=== PATIENT | male | born 1940 | race Caucasian/White ===

== ENCOUNTER 2017-05-02 09:55 | Inpatient (IN) | payer MEDICARE, MEDICAID ==
[~2017-05-02] VITALS: Ht 177.8 cm; Wt 93.9 kg
[~2017-05-02 09:55] MED LIST: ALL DAY ALLG10 MG PO; ASPIRIN; ASPIRIN81 MG PO; BENADRYL25 MG PO; C 500 PO; CETIRIZINE10 MG PO; DOXYCYCL HYC100 MG PO; FLONASE NASAL50 MCG; FLUTICASONE50 MCG NAB; LOVASTATIN20 M1 PO; NITROGLYCER0.4 MG PO; OMEGA-3 FISH1000 MG PO; PRAVASTATIN SOD40 MG PO; TOBRADEX 2.5 ML OU; TOBRAMYCIN0.3 % OS; TOBRAMYCIN0.3 % OU
[2017-05-02] MEDS ORDERED: LIPITOR40 M1 PO (11:24)
[2017-05-02] MEDS ORDERED: ALLERGY RELF10 M1 PO (11:25)
--- NOTE | 2017-05-05 17:25 | NUR ---
FROM OR VIA STRETCHER ACCOMPANIED BY RAISA ANNE. TRANSFERRED TO BED WITH MAX ASSIST. RESPS EVEN AND UNLABORED ON ROOM AIR. DRESSING TO RIGHT KNEE SECURED WITH JOE WRAP, CDI. RIGHT LEG ELEVATED ON PILLOWS, ICE PACK TO RIGHT KNEE. JACKSON PATENT, DRAINING CLEAR YELLOW URINE TO GRAVITY, STRAP TO UPPER LEFT LEG. DENIES PAIN OR DISCOMFORT. SCD TO LEFT LOWER EXTREMITY. ORIENTED TO ROOM AND CALL SYSTEM. BED IN LOWEST POSITION WITH WHEELS LOCKED. ENCOURAGED PT TO CALL FOR ANY NEEDS. CALL LIGHT WITHIN REACH.
[2017-05-05 17:30] VITALS: BP 121/57
[2017-05-05 17:45] VITALS: BP 131/55
[2017-05-05 18:08] VITALS: BP 116/61
--- NOTE | 2017-05-05 18:24 | NUR ---
TOLERATING CLEAR LIQUID DIET WITHOUT C/O NAUSEA OR ABD PAIN.
[2017-05-05 18:45] VITALS: BP 110/31
[2017-05-05 19:15] VITALS: BP 120/58
--- NOTE | 2017-05-05 20:00 | NUR ---
PATIENT RESTING IN BED AT THIS TIME-AWAKE ALERT AND ORIENTEDX3. PATIENT C/O POST-OP PAIN-MEDICATED WITH MORPHINE 2MG IVP ORDERED FOR POST-OP PAIN. PATIENT WITH DRESSING TO RIGHT KNEE SECURED WITH JOE WRAP. ICE PACK TO RIGHT KNEE ORDERED. PATIENT WITH JACKSON CATH PATENT AND DRAINING CLEAR YELLOW URINE. IV SITE TO LEFT FOREARM WITH IVF LR PATENT AND INFUSING AT 100CC/HR. SITE APPEARS HEALTHY AT THIS TIME. ENCOURAGED USE OF IS Q1H WHILE AWAKE, ENCOURAGED CDB EXERCISES. SCD TO LEFT LE. CMS TO RIGHT FOOT WNL-COLOR, SENSATION AND MOVEMENT WNL. DENIES ANY NUMBNESS AT THIS TIME. SAFETY PRECAUTIONS REINFORCED. CALL LIGHT IN REACH. WILL CONT TO MONITOR.
[2017-05-05 20:15] VITALS: BP 111/71
--- NOTE | 2017-05-05 23:00 | NUR ---
PATIENT RESTING IN BED-VOMITTING ORANGE COLORED FLUID-PATIENT JUST HAD ORANGE GATORADE. MEDICATED WITH ZOFRAN 4MG IVP ORDERED FOR VOMITTING. COOL CLOTH PROVIDED FOR FOREHEAD. CALL LIGHT IN REACH.
--- NOTE | 2017-05-06 01:00 | NUR ---
PATIENT APPEARS SLEEPING AT THIS TIME WITH EYES CLOSED. MOISES LIGHT IN REACH. WILL CONT TO MONITOR.
--- NOTE | 2017-05-06 02:34 | NUR ---
PATIENT IS AWAKE ALERT RESTING IN BED. JACKSON CATH PATENT AND DRAINING CLEAR YELLOW URINE. IVF LR PATENT AND INFUSING VIA LEFT FOREARM AT 100CC/HR. PATIENT WITH NO N/V AT THIS TIME. PATIENT DECLINES PAIN MEDS AT THIS TIME-STATES THAT HE IS AFRAID TO TRY ANY MEDS AT THIS TIME. RIGHT KNEE DRESSING INTACT AND SECURED WITH JOE WRAP. GIGI IS GOOD. CMS TO RIGHT FOOT IS WNL. GOOD COLOR SENSATION AND MOVEMENT. SCD TO LEFT INTACT. ENCOURAGED CDB EXERCISES AND USE OS IS Q1H WHILE AWAKE. SAFETY PRECAUTIONS REINFORCED.CALL LIGHT IN REACH. WILL CONT TO MONITOR.
[2017-05-06 04:55] VITALS: BP 124/67
--- NOTE | 2017-05-06 06:00 | NUR ---
PATIENT RESTING IN BED AT THIS TIME-IVF REMAIN AT 100CC/HR ORDERED. PATIENT DECLINES ANY PAIN MEDS AT THIS TIME-STATES THAT HE WILL TRY AFTER HE HAS SOME BREAKFAST. CALL LIGHT IN REACH. WILL CONT TO MONITOR.
--- NOTE | 2017-05-06 07:00 | NUR ---
RECEIVED BEDSIDE REPORT FROM CESAR ANNE. RESTING IN HIGH FOWLERS WATCHING TV. RESPS EVEN AND UNLABORED ON ROOM AIR. RIGHT LEG ELEVATED ON PILLOWS, DRESSING TO RIGHT LEG SECURED WITH JOE WRAP, CDI. SCD TO LEFT LOWER EXTREMITY. C/O RIGHT KNEE PAIN AND NAUSEA, WILL MEDICATE PER MAR. PLAN OF CARE DISCUSSED. SAFETY PRECAUTIONS REINFORCED. BED IN LOWEST POSITION WITH WHEELS LOCKED. CALL LIGHT WITHIN REACH. ENCOURAGED PT TO CALL FOR ANY NEEDS.
[2017-05-06 07:11] LABS: HEMATOCRIT 34.9 % (39.0-50.0); HEMOGLOBIN 11.4 g/dl (14.0-18.0)
[2017-05-06 07:30] VITALS: BP 114/46
--- NOTE | 2017-05-06 07:55 | NUR ---
RESTING IN BED WITH RIGHT KNEE ELEVATED ON PILLOWS. RESPS EVEN AND UNLABORED ON ROOM AIR. DRESSING TO RIGHT KNEE SECURED WITH JOE WRAP, CDI. #20 LFA INFUSING WITHOUT DIFFICULTY, SITE APPEARS HEALTHY. JACKSON PATENT, DRAINING CLEAR YELLOW URINE TO GRAVITY, STRAP TO UPPER LEFT LEG, SCD TO LEFT LOWER EXTREMITY. MEDICATED WITH PERCOCET X2 PO FOR C/O 5/10 RIGHT KNEE PAIN WITH ZOFRAN 4MG IVP FOR C/O NAUSEA. CALL LIGHT WITHIN REACH. WILL CONTINUE TO MONITOR.
--- NOTE | 2017-05-06 08:40 | NUR ---
PHYSICAL THERAPY IN WITH PT.
[2017-05-06 11:00] VITALS: BP 103/46
--- NOTE | 2017-05-06 11:00 | NUR ---
JACKSON CATH REMOVED WITH 500CC YELLOW URINE, 10CC IN BALLOON. TOLERATED WELL. INSTRUCTED PT TO CALL WITH URGE TO VOID. CALL LIGHT WITHIN REACH. WILL CONTINUE TO MONITOR.
--- NOTE | 2017-05-06 12:00 | NUR ---
DR CASTELLANO IN WITH PT, NEW ORDERS RECEIVED.
[2017-05-06 12:15] LABS: HEMATOCRIT 32.9 % (39.0-50.0); HEMOGLOBIN 10.8 g/dl (14.0-18.0); IMMATURE GRANULOCYTES 0.4 % (0.0-1.0); MEAN CELL VOLUME 91.1 fL CALC (80.0-100.0); MEAN CORPUSCULAR HGB 29.9 pG CALC (26.0-32.0); MEAN CORPUSCULAR HGB CONC 32.8 g/L CALC (32.0-36.0); NEUT# 8.66 thou/uL (1.82-7.42); RED BLOOD COUNT 3.61 mill/uL (4.70-6.10); RED CELL DISTRI WIDTH 13.4 % (11.5-15.5)
[2017-05-06 12:33] LABS: ALKALINE PHOSPHATASE 52 u/l (38-126); ANION GAP 14 (6-22 (CALC)); BILIRUBIN, TOTAL 0.8 mg/dL (0.0-1.4); BUN 11 mg/dL (8-23); BUN/CREATININE RATIO 13 (12-20 (CALC)); CARBON DIOXIDE 28 mmol/l (22-30); CHLORIDE 100 mmol/l (95-108); CREATININE 0.8 mg/dL (0.7-1.3); GFR > 60 ML/MIN (>=60 (CALC)); GFR FOR AFR.AMER. > 60 ML/MIN (>=60 (CALC)); SGOT/AST 25 u/l (19-48); SGPT/ALT 23 u/l (11-66); SODIUM 138 mmol/l (137-146)
[2017-05-06 12:35] LABS: ALBUMIN 3.4 g/dL (3.2-5.0); TOTAL PROTEIN 5.9 g/dL (6.3-8.2)
--- NOTE | 2017-05-06 13:00 | NUR ---
MEDICATED WITH ZOFRAN 4MG IVP FOR NAUSEA WITH 300CC EMESIS.
[2017-05-06 16:00] VITALS: BP 126/61
--- NOTE | 2017-05-06 17:20 | NUR ---
MEDICATED WITH PERCOCET PO FOR C/O 4/10 RIGHT KNEE PAIN WITH ZOFRAN 4MG IVP FOR C/O NAUSEA. VOIDED 125 CC URINE WITHOUT DIFFICULTY. CALL LIGHT WITHIN REACH. WILL CONTINUE TO MONITOR.
--- NOTE | 2017-05-06 17:27 | NUR ---
pm: Patient seen for exercises. He was in bed, stated he had been nauseaus. States he felt a little better and could ex, but did not feel up to walking. Ex done in supine for rom and strengthening of LE's. Beginning quad set seen. Full knee extension in supine. Patient coop, appeared to tolerate treatment well. Left him comfortable in bed with call light next to him.
--- NOTE | 2017-05-06 20:00 | NUR ---
PATIENT RESTING IN BED WITH HOB ELEVATED. AWAKE ALERT AND ORIENTEDX3. DRESSING TO RIGHT INTACT AND SECURED WITH JOE WRAP. PATIENT STILL WITH TEMP=MEDICATED WITH TYLENOL ORDERED. IVF LR PATENT AND INFUSING AT 100CC/HR. PATIENT IS VOIDING DARCIE URINE. SAFETY PRECAUTIONS REINFORCED.CALL LIGHT IN REACH.
[2017-05-06 20:45] VITALS: BP 115/58
[2017-05-06 23:30] VITALS: BP 123/65
--- NOTE | 2017-05-07 00:08 | NUR ---
PATIENT APPEARS SLEEPING AT THIS TIME WITH EYES CLOSED AND HOB ELEVATED. IVF PATENT AND INFUSING VIA LEFT FOREARM SITE. SITE APPEARS HEALTHY AT THIS TIME. CALL LIGHT IN REACH. WILL CONT TO MONITOR.
--- NOTE | 2017-05-07 04:12 | NUR ---
PATIENT APPEARS SLEEPING WITH EYES CLOSED AND HOB ELEVATED. CALL LIGHT IN REACH. IVF LR PATENT AND INFUSING AT 100CC/HR VIA LEFT FOREARM SITE. WILL CONT TO MONITOR.
[2017-05-07 05:20] VITALS: BP 113/69
[2017-05-07 05:30] LABS: HEMOGLOBIN 10.7 g/dl (14.0-18.0); IMMATURE GRANULOCYTES 0.5 % (0.0-1.0); MEAN CELL VOLUME 92.8 fL CALC (80.0-100.0); MEAN CORPUSCULAR HGB CONC 33.4 g/L CALC (32.0-36.0); NEUT# 10.97 thou/uL (1.82-7.42); RED BLOOD COUNT 3.45 mill/uL (4.70-6.10); RED CELL DISTRI WIDTH 13.7 % (11.5-15.5)
[2017-05-07 05:46] LABS: ANION GAP 17 (6-22 (CALC)); BUN 9 mg/dL (8-23); BUN/CREATININE RATIO 12 (12-20 (CALC)); CARBON DIOXIDE 26 mmol/l (22-30); CHLORIDE 99 mmol/l (95-108); CREATININE 0.8 mg/dL (0.7-1.3); GFR > 60 ML/MIN (>=60 (CALC)); GFR FOR AFR.AMER. > 60 ML/MIN (>=60 (CALC)); MAGNESIUM 1.5 mg/dL (1.6-2.3); POTASSIUM 3.8 mmol/l (3.5-5.1); SODIUM 139 mmol/l (137-146)
--- NOTE | 2017-05-07 05:50 | NUR ---
TEMP 100.1 AT THIS TIME. DENIOES ANY NEED FOR PAIN MEDS AT THIS TIME. DRESSING TO RIGHT KNEE INTACT. INCREASED SWELLING NOTED TO RIGHT LEG AND THIGH. SAFETY PRECAUTIONS REINFORCED. CALL LIGHT IN REACH. WILL CONT TO MONITOR.
--- NOTE | 2017-05-07 07:00 | NUR ---
RECEIVED BEDSIDE RPORT FROM CESAR ANNE. RESTING IN SEMI FOWLERS WITH EYES CLOSED, AWAKENS EASILY. RESPS EVEN AND UNLABORED ON ROOM AIR. #20 LFA INFUSING WITHOUT DIFFICULTY, SITE APPEARS HEALTHY. RIGHT LEG ELEVATED ON PILLOWS, DRESSING TO RIGHT KNEE SECURED WITH JOE WRAP, CDI. DENIES PAIN OR DISCOMFORT. PLAN OF CARE DISCUSSED. SAFETY PRECAUTIONS REINFORCED. BED IN LOWEST POSITION WITH WHEELS LOCKED. CALLL LIGHT WITHIN REACH. WILL CONTINUE TO MONITOR.
[2017-05-07 07:59] VITALS: BP 135/54
--- NOTE | 2017-05-07 08:55 | NUR ---
RESTING IN SEMI FOWLERS. RESPS EVEN AND UNLABORED ON ROOM AIR. DRESSING TO RIGHT KNEE SECURED WITH JOE WRAP, CDI. MEDCIATED WITH PERCOCET PO FOR C/O 2/10 RIGHT KNEE PAIN. TOLERATED FULL LIQUID DIET WITHOUT C/O NAUSEA OR ABD PAIN. CALL LIGHT WITHIN REACH. WILL CONTINUE TO MONITOR.
[2017-05-07 11:00] VITALS: BP 131/56
--- NOTE | 2017-05-07 11:46 | NUR ---
RESTING IN SEMI FOWLERS. DRESSING TO RIGHT KNEE REMOVED, NO DRAINAGE OR REDNESS NOTED. DERMABOND LEFT IN PLACE. TOLERATED WITHOUT DIFFICULTY. CALL LIGHT WITHIN REACH. WILL CONTINUE TO MONITOR.
--- NOTE | 2017-05-07 12:30 | NUR ---
PHYSICAL THERAPY IN WITH PT.
--- NOTE | 2017-05-07 12:40 | NUR ---
MEDICATED WITH ZOFRAN FOR C/O NAUSEA.
--- NOTE | 2017-05-07 13:46 | NUR ---
AMBULATING IN HALLWAY WITH PHYSICAL THERAPY.
--- NOTE | 2017-05-07 14:04 | NUR ---
PATIENT SEEN THIS PM FOR GAIT TRAINING. PATIENT FOUND SITTING UP IN BED. GAIT BELT APPLIED PRIOR TO ACTIVITY. THERAPIST ASSISTED PATIENT IN ABDUCTING AND LOWERING R LEG OFF OF BED. PATIENT TRANSFERED TO EDGE OF BED INDEPENDENTLY. PATIENT PERFORMED SIT TO STAND WITH CGA X1 AND AMBULATED WITH RW WITH CGA FOR 20 FEET AND RETURNED TO SITTING ON EDGE OF BED. THERAPIST ASSISTED IN LIFTING R LEG ON TO BED. PATIENT LEFT IN BED WITH ICE ON R KNEE AND SCD ON L CALF. BED SIDE TABLE AND CALL LIGHT WITHIN REACH. NO QUESTIONS OR CONCERNS FOLLOWING TREATMENT.
--- NOTE | 2017-05-07 14:27 | NUR ---
PATIENT SEEN FOR AM TX OF EX AND GT. HE REPORTED SEVERE PAIN AT 8/10 PRIOR TO TX. SUPINE TO SIT WITH SUPPORT AT RIGHT LE. AA/PROM IN SITTING TO INCREASE EXT. ABLE TO FLEX TO APPROX 80 DEGREES IN SITTING. SIT TO STAND WITH MIN A TO RW FOR GT 15 FEET WITH CONSTANT V.C. FOR STEP LENGTH AND TO INCREASE WB ON UE TO SUPPORT HIMSELF DURING R LE STANCE. MIN A FOR STAND TO SIT AND SUPPPORT AT R LE FOR SIT TO SUPINE. PATIENT HAD A FEW DROPS OF BLOOD AT INCISION SITE FOLLOWING AMB. HE REPORTED NO PAIN ONLY NAUSEAU. NSG IN TO ADDRESS ABOVE. SCD REPLACED AND TRAY TABLE/CALL JENKINS IN REACH.
[2017-05-07 16:00] VITALS: BP 106/52
--- NOTE | 2017-05-07 16:00 | NUR ---
IN HIGH FOWLERS WATCHING TV, RESPS EVEN AND UNLABORED ON ROOM AIR. RIGHT KNEE SURGICAL WOUND BLACK ASH BURNER OPERATOR, ICE PACKS APPLIED. #20 LFA INFUSING WITHOUT DIFFICULTY, SITE APPEARS HEALTHY. CALL LIGHT WITHIN REACH. WILL CONTINUE TO MONITOR.
[2017-05-07 20:00] VITALS: BP 104/57
--- NOTE | 2017-05-07 20:00 | NUR ---
PATIENT RESTING IN BED AT THIS TIME-AWAKE ALERT AND ORIENTEDX3. PATIENT WITH IVF PATENT AND INFUSING VIA LEFT FOREARM SITE AT 100CC/HR. PATIENT DENIES ANY NAUSEA AT THIS TIME. VOIDING QS CLEAR DARCIE URINE. RIGHT KNEE INCISION CAROL AND WELL APPROXIMATED WITH DERMABOND INTACT. NO COMPLAINTS AT THIS TIME. SAFETY PRECAUTIONS REINFORCED.CALL LIGHT IN REACH. WILL CONT TO MONITOR.
--- NOTE | 2017-05-07 22:00 | NUR ---
RESTING IN BED-MEDICATED WITH PERCOCET FOR POST-OP PAIN WITH TYLENOL FOR TEMP. CALL LIGHT IN REACH. WILL CONT TO ANJU.
[2017-05-08 00:18] VITALS: BP 125/59
--- NOTE | 2017-05-08 03:00 | NUR ---
PATIENT APPEARS SLEEPING AT THIS TIME WITH EYES CLOSED IN NO ACUTE DISTRESS. CALL LIGHT IN REACH. WILL CONT TO MONITOR.
[2017-05-08 03:49] LABS: HEMATOCRIT 27.5 % (39.0-50.0); HEMOGLOBIN 9.1 g/dl (14.0-18.0); MEAN CELL VOLUME 92.3 fL CALC (80.0-100.0); MEAN CORPUSCULAR HGB 30.5 pG CALC (26.0-32.0); MEAN CORPUSCULAR HGB CONC 33.1 g/L CALC (32.0-36.0); RED BLOOD COUNT 2.98 mill/uL (4.70-6.10); RED CELL DISTRI WIDTH 13.7 % (11.5-15.5)
[2017-05-08 03:51] VITALS: BP 105/60
--- NOTE | 2017-05-08 08:00 | NUR ---
PT SEEN AWAKE, ALERT, ORIENTED X 3. PT HAS BEEN UP TO BR, AMBULATORY WITH STANDBY ASSIST. NO COMPLAINTS OF PAIN AT THIS TIME. LUNGS CLEAR EXCEPT FOR SLIGHT CRACKLES TO RIGHT BASE, RA. RIGHT KNEE EDEMATOUS EXPECTED, ICE PACK APPLIED.
[2017-05-08 11:00] VITALS: BP 125/68
[2017-05-08 11:58] LABS: URINE BILIRUBIN - DIPSTICK NEGATIVE (NEGATIVE); URINE BLOOD DIPSTICK NEGATIVE (NEGATIVE); URINE COLOR YELLOW; URINE GLUCOSE - DIPSTICK NEGATIVE (NEGATIVE); URINE KETONE NEGATIVE (NEGATIVE); URINE LEUK ESTERASE NEGATIVE (Negative); URINE NITRITE - DIPSTICK NEGATIVE (Negative); URINE PROTEIN - DIPSTICK TRACE mg/dL (NEG-TRACE); URINE UROBILINOGEN - DIPSTICK 0.2 E.U./dL (0.2)
[2017-05-08 12:05] LABS: URINE CLARITY CLEAR
--- NOTE | 2017-05-08 12:19 | NUR ---
BC AND URINE SPECIMEN COLLECTED PER ORDER RECENTLY. TEMP 100.7. KNEE FEELS SOFTER, STATES PT. PT TO REHAB TOMORROW PER DR CASTELLANO IF ALL GOES WELL.
--- NOTE | 2017-05-08 12:56 | NUR ---
PT WAS SEEN COMFORTABLY SUPINE ON BED. MODIFIED INDEP. ON BED MOBILITY AND TRANSFERS WITH VERBAL CUES. PT AMBULATED IN THE HALLWAY ~30 FT. X 2 WITH ROLLING WALKER AND CGA. REPORTS THAT IT WAS THE FARTHEST HE WALKED POST OP. PT STATES PAIN ON KNEE WHEN WB ON IT PS 8/10. ASSISTED TO BATHROOM WHEN RETURNED TO ROOM. STATES HE WAS GOING TO TAKE A WHILE AND WOULD JUST PULL THE STRING WHEN HE IS DONE. REINFORCED FALL PRECAUTION.
--- NOTE | 2017-05-08 13:39 | NUR ---
PT TRANSFERRED FROM SUPINE TO SITTING WITH MIN A AND VERBAL CUES. STATES THAT HE WANTED TO USE THE REST ROOM. ASSISTED PT FROM BED TO BATHROOM WITH ROLLING WALKER AND CGA. PT APPEARED STABLE HOWEVER STILL COMPLAINED OF PAIN ON R KNEE DURING STANDING AND WALKING. PT SHOWED MODERATE DIFFICULTY PERFORMING SITTING ON TOILET FROM STANDING WITH VERBAL CUES ON HAND PLACEMENT AND TURNING. PT STATES THAT HE WAS GOING TO TAKE A WHILE IN THE BATHROOM. ADVISED HIM TO PULL THE STRING WHEN HE IS DONE. INFORMED NURSING.
[2017-05-08 16:00] VITALS: BP 180/69
--- NOTE | 2017-05-08 16:00 | NUR ---
PT OOB WITH PHYSICAL THERAPIST EARLIER THIS AFTERNOON, IN BED NOW. PT CONTINUES WITH ABX ORDERED. PAIN TO RIGHT KNEE IS MINIMAL EXCEPT WITH MOVEMENT.
--- NOTE | 2017-05-08 17:15 | NUR ---
TEMP BACK UP TO 101.4, PROVIDED TYLENOL FOR SAME.
[2017-05-08 19:35] VITALS: BP 128/64
--- NOTE | 2017-05-08 19:45 | NUR ---
PT SITTING UP IN BED WATCHING TV. PT IS ALERT AND ORIENTED X3. PERRLA. RESP ARE EVEN AND UNLABORED. NO DISTRESS NOTED. LUNGS ARE CLEAR. HR REGULAR. PULSES PALPABLE THORUGHOUT. R LEG EDEMA. R LEG IS RED. SITE MARKED WHERE REDNESS AND WARMTH IS NOTED. DR AYALA NOTIFIED OF THIS FINDING WELL. BS ACTIVE. PT REPORTS LAST BM WAS 05/04/17. #20 LFA WITH LR @100CC/HR INFUSING. NO REDNESS OR EDEMA NOTED. WILL CONTINUE TO MONITOR
--- NOTE | 2017-05-08 22:00 | NUR ---
NOTIFIED DR CASTELLANO AND DR HEATH OF LEG WARMTH, REDNESS, AND SWELLING.
--- NOTE | 2017-05-08 22:29 | NUR ---
PT TO ULTRASOUND VIA WC.
--- NOTE | 2017-05-08 22:50 | NUR ---
PT RETURNED FROM RADIOLOGY VIA . ASSISTED BACK TO BED.
--- NOTE | 2017-05-09 | NUR ---
PT RESTING IN BED WITH EYES CLOSED. RESP ARE EVEN AND UNLABORED. NO DISTRESS NOTED. WILL CONTINUE TO MONITOR
--- NOTE | 2017-05-09 04:00 | NUR ---
PT RESTING IN BED WITH EYES CLOSED. RESP ARE EVEN AND UNLABORED. NO DISTRESS NOTED. WILL CONTINUE TO MONITOR
[2017-05-09 05:34] VITALS: BP 116/65
[2017-05-09 06:40] LABS: HEMATOCRIT 29.7 % (39.0-50.0); HEMOGLOBIN 9.6 g/dl (14.0-18.0); MEAN CELL VOLUME 93.4 fL CALC (80.0-100.0); MEAN CORPUSCULAR HGB 30.2 pG CALC (26.0-32.0); MEAN CORPUSCULAR HGB CONC 32.3 g/L CALC (32.0-36.0); RED BLOOD COUNT 3.18 mill/uL (4.70-6.10); RED CELL DISTRI WIDTH 13.9 % (11.5-15.5)
[2017-05-09 06:47] LABS: ANION GAP 13 (6-22 (CALC)); BUN 9 mg/dL (8-23); BUN/CREATININE RATIO 13 (12-20 (CALC)); CARBON DIOXIDE 28 mmol/l (22-30); CHLORIDE 103 mmol/l (95-108); CREATININE 0.7 mg/dL (0.7-1.3); GFR > 60 ML/MIN (>=60 (CALC)); GFR FOR AFR.AMER. > 60 ML/MIN (>=60 (CALC)); POTASSIUM 3.9 mmol/l (3.5-5.1); SODIUM 140 mmol/l (137-146)
[2017-05-09 07:53] VITALS: BP 127/63
--- NOTE | 2017-05-09 07:53 | NUR ---
ASSESSMENT IS COMPLETED: IV SITE IS FREE FROM REDNESS OR EDEMA. PT C/O ALOT OF GAS, GAVE MIRALAX, HR IS REG,PULSES ARE STRONG X4. R LEG IS PUFFY AND WARM TO THE TOUCH. INCISION IS CLOTH REELER AND CDI. CONTINUE TO OBSERVE AND MONITOR.
--- NOTE | 2017-05-09 11:29 | NUR ---
Pt was resting in bed stated he wanted to use BR toilet that he had had a laxative. Pt moved supine to sit with supervision, using UEs to assist RLE to edge of bed. Pt ambulated to BR with RW and CGA. He required assist to move to sit on toilet and mod assist x1 to stand. Pt then ambulated approx 60' with RW into [address]. Pt encourage to sit in chair but he wanted to return to bed. Pt required assistance to lift RLE into bed. RLE ex performed in sitting and supine. Full ext and flexion stress to be done mult times during the day. Pt positioned properly in bed with phone/call cuellar, etc in reach.
--- NOTE | 2017-05-09 12:45 | NUR ---
PT IS RELAXING IN BED WITH NO DISTRESS NOTED. IV SITE IS FREE FROM REDNESS OR EDEMA. CONTINUE TO OBSERVE AND MONITOR.
--- NOTE | 2017-05-09 14:35 | NUR ---
Pt still in bed and without complaints from this am. He performed supine and sitting ex with assist as needed, unable to fully extend knee in supine. Gait 1x 80' with CGA and verbal cues to extend R knee during wt bearing. Pt would not sit up in chair and returned to bed with assist required to lift RLE. Pt positioned properly with call cuellar/phone in reach, ice on R knee.
[2017-05-09 16:00] VITALS: BP 125/65
--- NOTE | 2017-05-09 16:38 | NUR ---
PT IS RELAXING IN BED HAS WALKED WITH PT. IV SITE IS FREE FROM REDNESS OR EDEMA. CONTINUE TO OBSERVE AND MONITOR.
--- NOTE | 2017-05-09 20:00 | NUR ---
PT RESTING IN BED WATCHING TV. PT IS ALERT AND ORIENTED X3. PERRLA. RESP ARE EVEN AND UNLABORED. NO DISTRESS NOTED. LUNGS ARE CLEAR. HR REGULAR. PULSES PALPABLE THROUGHOUT. EDEMA TO RLE. POST OP KNEE. KNEE CONTINUES TO BE RED AND SWOLLEN AND WARM TO TOUCH. BS ACTIVE. #20 LFA DC'D. IV SITE RED AND WARM TO TOUCH. #22 RFA WITH LR @100CC/HR INFUSING. NO REDNESS OR EDEMA NOTED TO NEW SITE. WILL CONTINUE TO MONITOR. CALL LIGHT IN REACH
[2017-05-09 20:33] VITALS: BP 136/62
--- NOTE | 2017-05-09 20:45 | NUR ---
TEMP 100.7 MEDICATED WITH PERCOCET FOR PAIN AND FEVER
--- NOTE | 2017-05-09 21:51 | NUR ---
TEMP 102.[address] AYALA OF TEMP INCREASING. ORDERS RECEIVED.
--- NOTE | 2017-05-10 | NUR ---
PT RESTING IN BED WITH EYES CLOSED. RESP ARE EVEN AND UNLABORED. NO DISTRESS NOTED. WILL CONTINUE TO MONITOR
[2017-05-10 00:40] VITALS: BP 117/61
--- NOTE | 2017-05-10 04:11 | NUR ---
PT RESTING IN BED WITH EYES CLOSED. RESP ARE EVEN AND UNLABORED. NO DISTRESS NOTED. WILL CONTINUE TO MONITOR.
[2017-05-10 04:39] VITALS: BP 111/55
[2017-05-10 07:53] VITALS: BP 119/62
--- NOTE | 2017-05-10 07:53 | NUR ---
ASSESSMENT IS COMPLTED; IV SITE IS FREE FROM REDNESS OR EDEMA. HR IS REG, PULSES ARE STRONG X4, ABD IS SOFT WITH ACTIVE BS. R KNEE IS LOOKING BETTER TODAY. LESS HEAT, SLIGHTLY RED, R ANKLE IS PUFFY, PT ABLE TO MOVE IT. CONTINUE TO OBSERVE AND MONITOR.
--- NOTE | 2017-05-10 12:19 | NUR ---
PT IS RELAXING IN BED WITH NO DISTRESS NOTED. IV SITE IS FREE FROM REDNESS OR EDEMA.
--- NOTE | 2017-05-10 12:20 | NUR ---
PATIENT SLEEPING IN BED BUT EASILY AROUSED. STATES HE IS FEELING MUCH BETTER, HAS NO PAIN AT PRESENT. SUPINE TO SIT USING LEFT FOOT TO ASSIST R LE UNTIL OFF EDGE OF BED. AM TX OF GT AND MAULIK PERFORMED. LAQ AND ANKLE PUMPS IN SITTING. SIT TO STAND WITH CGA FOR GT 90 FEET X 2, WITH STANDING REST ONLY. PATIENT WITH CGA TO SBA WITH STEP TO GAIT PATTERN. V.C.'S FOR INCREASED AXIAL EXT. DEMONSTRATING A HEEL STRIKE TODAY ON RIGHT. STAND TO SIT TO SUPINE WITH SBA. PERFORMED QUAD SET WITH IMPROVED ACTIVATION FOLLOWING AMB. CONTINUE BID TX.
--- NOTE | 2017-05-10 14:38 | NUR ---
PATIENT IN BED, BUT AWAKE. STATES HE IS COLD, AND THERMOSTAT ADJUSTED TO WARM ROOM. P.M. TX FOR GT. STATES HE IS DOING HIS AROM ON HIS OWN AND IS TOO TIRED, BUT HE WILL WALK. SUPINE TO SIT TO STAND WITH SBA, USING HIS UE'S TO LIFT R LE. AMB WITH RW 85 FEET X 2 WITH SBA AND STEP TO SEQUENCING. ATTMEPTED STEP THROUGH, WITH BETTER GAIT USING 3 POINT WITH RW. HE IS PLANNING TO GO TO REHAB HE LIVES ALONE AND HAS STAIRS AT HOME. BACK TO BED WITH SBA AND V.C.'S FOR HAND PLACEMENT ONLY. ENCOURAGED TO CONTINUE ANKLE PUMPS. PILLOW UNDER R LE WITH HEEL FLOATED. PATIENT WITH ECCHYMOSIS ON MEDIAL HEEL. LESS EDEMA AND NO C/O PAIN TODAY. CALL GREGORY AND MARIE IN REACH.
--- NOTE | 2017-05-10 16:30 | NUR ---
PT HAS BEEN RESTING IN BED REFUSED LUNCH AND DINNER. STATED" THIS AM I FEEL GREAT". CONTINUE TO OBSERVE AND MONITOR.
[2017-05-10 17:12] VITALS: BP 155/79
--- NOTE | 2017-05-10 18:30 | NUR ---
WENT TO CHECK ON PT DUE TO FEVER OF 100.2 AND HE WAS RESTING ,. ALREADY INFORMED ME THAT HE DID NOT WANT TO TAKE ANYMORE PILLS.
[2017-05-10 20:00] VITALS: BP 138/72
--- NOTE | 2017-05-10 20:31 | NUR ---
PT IN SEMIFOWLERS A/O X3, RESPIRATIONS EVEN AND UNLABORED ON RA. INCENTIVE SPIROMTER VOLUME INSPIRED IS 1000ML. LR INFUSING TO RFA AT 100CC/HR. REDDENED AREAS NOTICED TO LFA, DENIES PAIN. TOTAL RIGHT KNEE ARTHROPLASTY ON 05/02/17. RIGHT KNEE IS [employer], DENIES NEED FOR PAIN MEDS AT THIS TIME. TEMP IS 100.6 TYLENOL 500MG PROVIDED AT THIS TIME. REFUSES FISH OIL, LIPITOR AND SURFAK, ADMITS TO BM TODAY. ENCOURAGED TO USE CALL LIGHT FOR ASSISTANCE, WILL CONTINUE TO MONITOR.
--- NOTE | 2017-05-10 20:31 | NUR ---
TYLENOL 500MG PO GIVEN FOR TEMP 100.6
--- NOTE | 2017-05-10 21:40 | NUR ---
TEMP 101.2, ICE PACK APPLIED TO FOREHEAD, WILL CONITNUE TO MONITOR.
--- NOTE | 2017-05-11 01:15 | NUR ---
TEMP DOWN TO 99.3. DENIES PAIN, RESPIRATIONS EVEN AND UNLABORED.
--- NOTE | 2017-05-11 04:00 | NUR ---
RESTING WITH EYES CLOSED, RESPIRAITONS EVEN AND UNLABORED. CALL LIGHT IN REACH.
[2017-05-11 04:19] VITALS: BP 136/61
[2017-05-11 05:28] LABS: HEMATOCRIT 26.9 % (39.0-50.0); HEMOGLOBIN 8.8 g/dl (14.0-18.0); MEAN CELL VOLUME 91.8 fL CALC (80.0-100.0); MEAN CORPUSCULAR HGB CONC 32.7 g/L CALC (32.0-36.0); RED BLOOD COUNT 2.93 mill/uL (4.70-6.10); RED CELL DISTRI WIDTH 13.8 % (11.5-15.5)
[2017-05-11 05:46] LABS: ANION GAP 15 (6-22 (CALC)); BUN 7 mg/dL (8-23); BUN/CREATININE RATIO 13 (12-20 (CALC)); CARBON DIOXIDE 23 mmol/l (22-30); CHLORIDE 105 mmol/l (95-108); CREATININE 0.6 mg/dL (0.7-1.3); GFR > 60 ML/MIN (>=60 (CALC)); GFR FOR AFR.AMER. > 60 ML/MIN (>=60 (CALC)); MAGNESIUM 1.7 mg/dL (1.6-2.3); POTASSIUM 3.5 mmol/l (3.5-5.1); SODIUM 140 mmol/l (137-146)
--- NOTE | 2017-05-11 07:57 | NUR ---
ASSESSMETN IS COMPLETED: IV SITE IS FREE FROM REDNESS OR EDEMA. CONTINUE TO OSBERVE AND MONITOR. HR IS REG,PULSES ARE STRONG X4, ABD IS SOFT WITH ACTIVE BS, R KNEE IS LESS SWOLLEN AND WARM TODAY. ANKLE HAS SOME NON PITTING EDEMA NOTED. CONTINUE TO OBSERVE AND MONITOR.
[2017-05-11 08:38] VITALS: BP 138/72
--- NOTE | 2017-05-11 12:39 | NUR ---
1130: PATIENT SEEN FOR GAIT AND EXERCISES. EX DONE SUPINE AND IN SITTING FOR ROM AND STRENGTHENING OF THE RIGHT LEG. MOVEMENTS ARE LIMITED BECAUSE OF THE EDEMA. ACTIVELY HIS ROM OF THE KNEE WAS -10 TO 70 DEGREES. GAIT TRAINING DONE WITH A ROLLING WALKER. INSTRUCTED PATIENT IN MORE EQUAL STRIDE LENGTHS HE IS USING A STEP TO GAIT PATTERN. HE WAS LEFT COMFORTABLE IN THE CHAIR WITH HIS LUNCH TRAY IN REACH AND HIS CALL LIGHT IN HIS LAP. HE STATES HE CANNOT EAT BECAUSE OF PERSISTANT NAUSEA.
--- NOTE | 2017-05-11 12:44 | NUR ---
PT HAS BEEN RESTING IN BED WITH MO DISTRESS NOTED. IV SITE IS FREE FROM REDNESS OR EDEMA. CONTINUE TO OBSERVE AND MONITOR.
--- NOTE | 2017-05-11 13:53 | NUR ---
1:05: PATIENT SEEN FOR GAIT TRAINING. AMBULATED LENGTH OF HALLWAY WITH ROLLING WALKER WITH SLIGHTLY IMPROVED GAIT PATTERN WITH VERBAL CUING FOR MORE EQUAL STRIDE LENGTHS. HE DID NOT WANT TO EX STATING HE WAS TOO TIRED. HE WAS LEFT COMFORTABLE IN BED WITH THE TRAY TABLE AND CALL LIGHT NEXT TO HIM.
[2017-05-11 16:00] VITALS: BP 130/61
--- NOTE | 2017-05-11 16:40 | NUR ---
PT IS RELAXING IN BED HAS AMBUATED TO THE BATHROOM WITH NO DISTRESS NOTED, IV SITE IS FREE FROM REDNESS OR EDEMA. CONTINUE TO OSBERVE AND MONITOR.
[2017-05-11 19:35] VITALS: BP 127/59
--- NOTE | 2017-05-11 19:47 | NUR ---
PATIENT RESTING IN BED AT THIS TIME WITH NO COMPLAINTS AT THIS TIME. AWAKE ALERT AND ORIENTEDX3. HEP LOCK TO THE RIGHT FOREARM-SITE APPEARS HEALTHY AT THIS TIME. RIGHT KNEE INCISION IS INTACT AND WELL APPROXIMATED-NO DRAINAGE AT THIS TIME. RIGHT ANKLE EDEMA NOTED WITH ECCYMOTIC AREA NOTED TO POSTERIOR ANKLE. STATES THAT HE HAD BM THIS AFTERNOON. DENIES ANY DIFFICULTY WITH VOIDING-DENIES BURNING OR PAIN WITH URINATIION. INSTRUCTED ON USE OF IS Q1H WHILE AWAKE. DEMONSTRATES USE OF THE DEVICE. SAFETY PRECAUTIONS REINFORCED.CALL LIGHT IN REACH. WILL CONT TO MONITOR.
--- NOTE | 2017-05-12 00:40 | NUR ---
PATIENT WITH TEMP OF 100.2-MEDICATED FOR TEMP WITH TYLENOL 500MG PO. CALL LIGHT IN REACH. WILL CONT TO MONITOR.
[2017-05-12 01:07] VITALS: BP 136/65
--- NOTE | 2017-05-12 02:57 | NUR ---
TEMP IS DOWN TO 98.7-APPEARS SLEEPING AT THIS TIME. CALL LIGHT IN REACH. WILL CONT TO MONITOR.
[2017-05-12 04:41] VITALS: BP 129/66
--- NOTE | 2017-05-12 05:50 | NUR ---
PATIENT STILL WITH TEMP ELEVATION THIS MORNING OF 99.9. RESTING IN BED WITH NO COMPLAINTS. CALL LIGHT IN REACH. WILL CONT TO MONITOR.
--- NOTE | 2017-05-12 06:17 | NUR ---
PATIENT UP TO THE BR WITH ASSIST OF WALKER-SMALL BM AND THEN BACK TO THE BED. CALL LIGHT IN REACH. WILL CONT TO MONITOR.
--- NOTE | 2017-05-12 07:32 | NUR ---
Vancomycin consult Age: 77 years Weight: 93.9 kg Height: 177.8 cm Gender: Male SCR: 1 mg/dl Dosing weight: 81.36 kg IBW: 73.00 kg CRCL (ml/min): 63.9 Nestor (hr-1): 0.057 Half-life (hrs): 12.16 Vd (liters): 65.73 (factor: 0.7 L/kg) Vancomycin 1000 mg q12 hrs to produce a predicted peak of 29 mcg/ml and a predicted trough of 16 mcg/ml based on (Population-based pharmacokinetic analysis).
[2017-05-12 07:35] VITALS: BP 121/57
--- NOTE | 2017-05-12 07:35 | NUR ---
ASSESSMENT IS COMPLETED: IV SITE IS FREE FROM REDNESS OR EDMEA. NO DISTRESS NOTED. C/O SOME NAUSEA THIS AM,. HR IS REG,PULSES ARE STRONG X4, ABD IS SOFT WITH ACTIVE BS. R KNEE IS BETTER SOME SWELLING REMAINS. R ANKLE HAS NON PITTING EDEMA NOTED. CONTINUE TO OSBERVDE AND MONITOR.
[2017-05-12 07:44] LABS: HEMATOCRIT 27.4 % (39.0-50.0); HEMOGLOBIN 8.9 g/dl (14.0-18.0); MEAN CELL VOLUME 91.9 fL CALC (80.0-100.0); MEAN CORPUSCULAR HGB 29.9 pG CALC (26.0-32.0); MEAN CORPUSCULAR HGB CONC 32.5 g/L CALC (32.0-36.0); RED BLOOD COUNT 2.98 mill/uL (4.70-6.10); RED CELL DISTRI WIDTH 13.9 % (11.5-15.5)
[2017-05-12 08:05] LABS: ANION GAP 15 (6-22 (CALC)); BUN 10 mg/dL (8-23); BUN/CREATININE RATIO 16 (12-20 (CALC)); CARBON DIOXIDE 25 mmol/l (22-30); CHLORIDE 103 mmol/l (95-108); CREATININE 0.6 mg/dL (0.7-1.3); GFR > 60 ML/MIN (>=60 (CALC)); GFR FOR AFR.AMER. > 60 ML/MIN (>=60 (CALC)); POTASSIUM 3.8 mmol/l (3.5-5.1); SODIUM 140 mmol/l (137-146)
--- NOTE | 2017-05-12 10:03 | NUR ---
Pt seen this am for ther ex in sitting/supine 2x10 reps and gait training. Pt moved supine to and from sit with supervision using hands to assist RLE. Pt ambulated with RW 1x 80' with SBA/CGA. Pt refused to sit in chair. Used rest room x1, moving himself using rail with both hands for sit to and from stand. gait pattern with step too and decreased R knee motion. Pt was left in bed with pillow under R calf to off wt heel, call cuellar and phone in reach. Gait belt and non skid socks in place during treatment.
[2017-05-12] MEDS ORDERED: Levaquin PO (12:08)
[2017-05-12] MEDS ORDERED: SURFAK240 MG/CAP PO (12:08)
[2017-05-12] MEDS ORDERED: PERCOCET 10/31 COMBO PO (12:08)
[2017-05-12] MEDS ORDERED: ASPIRIN81 MG PO (12:08)
[2017-05-12] MEDS ORDERED: PEPCID20 MG PO (12:13)
--- NOTE | 2017-05-12 12:15 | NUR ---
PT IS RELAXING IN BED WITH NO DISTRESS NOTED. IV SITE IS FREE FROM REDNESS OR EDEMA NOTED. CONTINUE TO OBESRVE AND MONITOR.
--- NOTE | 2017-05-12 13:37 | NUR ---
Pt seen this pm for gait this pm. Pt moved supine to and from sit with supervision, ambulated with RW 1x 80' with SBA/CGA, no changes in gait pattern noted. Pt positioned with R heel off loaded, call cuellar and phone in reach. He is for transfer to rehab today.
--- NOTE | 2017-05-12 14:02 | NUR ---
IV SITE DISCONTINUED CATHETER INTACT, NO REDNESS OR EDEMA.
--- NOTE | 2017-05-12 15:36 | NUR ---
SPOKE WITH JEANMARIE TEJEDA. DISCHARGE INSTRUCTIONS GIVEN AND VERBALIZED UNDERSTANDIND. [facility] TRANSPORTED PT VIA TO [facility].
--- NOTE | 2017-05-12 15:37 | NUR ---
Discharge instructions given. Patient verbalizes understanding of same. Discharged in stable condition via Wheelchair to [facility] with *Other. All belongings sent with pt.
== END 2017-05-12 15:29 | DRG 470 ==
LOC: MS2 05-05 09:39
PROVIDERS: Internal Medicine; Nurse Practitioner Family; ADMIT Orthopaedic Surgery; ATTEND Orthopaedic Surgery
PROC: 0SRC0J9 Replacement of Right Knee Joint with Synthetic Substitute, Cemented, Open Approach (ICD-10-PCS; principal; 2017-05-05)
DX: M17.0 Bilateral primary osteoarthritis of knee (principal); N39.0 Urinary tract infection, site not specified; L03.115 Cellulitis of right lower limb; D62 Acute posthemorrhagic anemia; E83.42 Hypomagnesemia; E78.5 Hyperlipidemia, unspecified; K40.90 Unilateral inguinal hernia, without obstruction or gangrene, not specified as recurrent; K59.00 Constipation, unspecified; B96.20 Unspecified Escherichia coli [E. coli] as the cause of diseases classified elsewhere; Z87.891 Personal history of nicotine dependence; Z01.818 Encounter for other preprocedural examination; Z86.79 Personal history of other diseases of the circulatory system; E78.00 Pure hypercholesterolemia, unspecified; J45.909 Unspecified asthma, uncomplicated; J43.9 Emphysema, unspecified; Z87.448 Personal history of other diseases of urinary system; Z72.89 Other problems related to lifestyle
CPT/HCPCS: J1650; J2270

== ENCOUNTER 2017-05-14 11:11 | Emergency (ER) | payer MEDICARE, MEDICAID ==
[~2017-05-14] VITALS: Ht 177.8 cm; Wt 86.4 kg
[~2017-05-14 11:11] MED LIST changes: +ALLERGY RELF10 M1 PO; +LIPITOR40 M1 PO; +Levaquin PO; +PEPCID20 MG PO; +PERCOCET 10/31 COMBO PO; +SURFAK240 MG/CAP PO
[2017-05-14] MEDS ORDERED: LORTAB 1010 MG PO (11:33)
[2017-05-14] MEDS ORDERED: ZOFRAN ODT4 MG PO (11:34)
[2017-05-14 11:54] LABS: HEMATOCRIT 30.9 % (39.0-50.0); HEMOGLOBIN 9.9 g/dl (14.0-18.0); IMMATURE GRANULOCYTES 2.7 % (0.0-1.0); MEAN CELL VOLUME 92.5 fL CALC (80.0-100.0); MEAN CORPUSCULAR HGB 29.6 pG CALC (26.0-32.0); NEUT# 5.18 thou/uL (1.82-7.42); RED BLOOD COUNT 3.34 mill/uL (4.70-6.10); RED CELL DISTRI WIDTH 13.8 % (11.5-15.5)
[2017-05-14 12:14] LABS: ALBUMIN 3.2 g/dL (3.2-5.0); ANION GAP 18 (6-22 (CALC)); BILIRUBIN, TOTAL 1.2 mg/dL (0.0-1.4); BUN 12 mg/dL (8-23); BUN/CREATININE RATIO 20 (12-20 (CALC)); CARBON DIOXIDE 23 mmol/l (22-30); CHLORIDE 103 mmol/l (95-108); CREATININE 0.6 mg/dL (0.7-1.3); GFR > 60 ML/MIN (>=60 (CALC)); GFR FOR AFR.AMER. > 60 ML/MIN (>=60 (CALC)); POTASSIUM 3.8 mmol/l (3.5-5.1); SGPT/ALT 42 u/l (11-66); SODIUM 140 mmol/l (137-146); TOTAL PROTEIN 6.2 g/dL (6.3-8.2)
[2017-05-14 12:15] LABS: ALKALINE PHOSPHATASE 84 u/l (38-126); SGOT/AST 53 u/l (19-48)
[2017-05-14 13:44] VITALS: BP 106/56
== END 2017-05-14 13:45 ==
LOC: ED 11:11
PROVIDERS: Family Medicine
DX: I95.89 Other hypotension (principal); E78.5 Hyperlipidemia, unspecified; J43.9 Emphysema, unspecified; R11.0 Nausea; R61 Generalized hyperhidrosis; Z96.651 Presence of right artificial knee joint; Y93.B9 Activity, other involving muscle strengthening exercises; Y92.538 Other ambulatory health services establishments as the place of occurrence of the external cause

== ENCOUNTER 2017-08-11 09:59 | Inpatient (IN) | payer MEDICARE, MEDICAID ==
[~2017-08-11] VITALS: Ht 177.8 cm; Wt 95.3 kg
[2017-08-11] VITALS (7 sets, daily range): BP systolic 104–136; BP diastolic 54–91
[~2017-08-11 09:59] MED LIST changes: -C 500 PO; +LORTAB 1010 MG PO; +VITAMIN C500 M4 PO; +ZOFRAN ODT4 MG PO
[2017-08-11] MEDS ORDERED: LEVOTHYROXIN50 MCG PO (10:27)
[2017-08-11] MEDS ORDERED: TYLENOL325 MG PO (10:28)
[2017-08-12] VITALS (7 sets, daily range): BP systolic 88–126; BP diastolic 42–63
[2017-08-12 05:23] LABS: HEMATOCRIT 35.2 % (39.0-50.0)
[2017-08-13 04:32] VITALS: BP 100/58
[2017-08-13 05:36] LABS: HEMATOCRIT 26.6 % (39.0-50.0); HEMOGLOBIN 8.5 g/dl (14.0-18.0)
[2017-08-13 06:00] LABS: ANION GAP 8 (6-22 (CALC)); BUN 12 mg/dL (8-23); BUN/CREATININE RATIO 19 (12-20 (CALC)); CARBON DIOXIDE 29 mmol/l (22-30); CHLORIDE 101 mmol/l (95-108); CREATININE 0.6 mg/dL (0.7-1.3); GFR > 60 ML/MIN (>=60 (CALC)); GFR FOR AFR.AMER. > 60 ML/MIN (>=60 (CALC)); MAGNESIUM 1.5 mg/dL (1.6-2.3); POTASSIUM 3.5 mmol/l (3.5-5.1); SODIUM 133 mmol/l (137-146)
[2017-08-13 08:20] VITALS: BP 100/44
[2017-08-13 16:56] VITALS: BP 112/55
[2017-08-13 19:00] VITALS: BP 124/63
[2017-08-14 04:49] VITALS: BP 113/62
[2017-08-14 05:05] LABS: HEMATOCRIT 30.2 % (39.0-50.0); HEMOGLOBIN 9.5 g/dl (14.0-18.0); IMMATURE GRANULOCYTES 0.4 % (0.0-1.0); MEAN CELL VOLUME 91.2 fL CALC (80.0-100.0); MEAN CORPUSCULAR HGB 28.7 pG CALC (26.0-32.0); MEAN CORPUSCULAR HGB CONC 31.5 g/L CALC (32.0-36.0); NEUT# 6.14 thou/uL (1.82-7.42); RED BLOOD COUNT 3.31 mill/uL (4.70-6.10); RED CELL DISTRI WIDTH 15.2 % (11.5-15.5)
[2017-08-14 05:19] LABS: ANION GAP 8 (6-22 (CALC)); BUN 10 mg/dL (8-23); BUN/CREATININE RATIO 15 (12-20 (CALC)); CARBON DIOXIDE 31 mmol/l (22-30); CHLORIDE 103 mmol/l (95-108); CREATININE 0.7 mg/dL (0.7-1.3); GFR > 60 ML/MIN (>=60 (CALC)); GFR FOR AFR.AMER. > 60 ML/MIN (>=60 (CALC)); POTASSIUM 3.2 mmol/l (3.5-5.1); SODIUM 138 mmol/l (137-146)
[2017-08-14 05:25] LABS: MAGNESIUM 2.1 mg/dL (1.6-2.3)
[2017-08-14 05:26] LABS: URINE BILIRUBIN - DIPSTICK NEGATIVE (NEGATIVE); URINE BLOOD DIPSTICK NEGATIVE (NEGATIVE); URINE CLARITY CLEAR; URINE COLOR YELLOW; URINE GLUCOSE - DIPSTICK NEGATIVE (NEGATIVE); URINE KETONE NEGATIVE (NEGATIVE); URINE LEUK ESTERASE SMALL (NEGATIVE); URINE NITRITE - DIPSTICK NEGATIVE (Negative); URINE PH 6.5 (4.5-8.0); URINE PROTEIN - DIPSTICK NEGATIVE (NEG-TRACE); URINE SPECIFIC GRAVITY <=1.005; URINE UROBILINOGEN - DIPSTICK 0.2 E.U./dL (0.2)
[2017-08-14 05:31] LABS: URINE BACTERIA FEW hpf; URINE RBC 0-2 RBC/hpf (0-5); URINE SQUAMOUS EPITHELIAL CELL FEW EPI/hpf (0-FEW); URINE WBC 20-50 WBC/hpf (0-5)
[2017-08-14 07:52] VITALS: BP 119/60
[2017-08-14] MEDS ORDERED: PERCOCET 10/31 COMBO PO (11:51)
[2017-08-14] MEDS ORDERED: SURFAK240 MG/CAP PO (11:51)
[2017-08-14] MEDS ORDERED: ASPIRIN EC325 MG PO (11:51)
[2017-08-14] MEDS ORDERED: GLYCOLAX3350 N1 PO (11:51)
[2017-08-14] MEDS ORDERED: ZOFRAN4 MG/TAB PO (11:51)
[2017-08-14] MEDS ORDERED: PEPCID20 MG PO (11:52)
[2017-08-14] MEDS ORDERED: CIPROFLOXACN500 MG PO (11:55)
== END 2017-08-14 14:52 | DRG 470 ==
LOC: MS2 09:59
PROVIDERS: Nurse Practitioner Family; ADMIT Orthopaedic Surgery; ATTEND Orthopaedic Surgery
PROC: 0SRD0J9 Replacement of Left Knee Joint with Synthetic Substitute, Cemented, Open Approach (ICD-10-PCS; principal; 2017-08-11)
DX: M17.12 Unilateral primary osteoarthritis, left knee (principal); D62 Acute posthemorrhagic anemia; E78.5 Hyperlipidemia, unspecified; E03.9 Hypothyroidism, unspecified; R11.0 Nausea; E83.42 Hypomagnesemia; Z96.651 Presence of right artificial knee joint; Z87.891 Personal history of nicotine dependence; T40.605A Adverse effect of unspecified narcotics, initial encounter; R33.9 Retention of urine, unspecified; R50.82 Postprocedural fever
CPT/HCPCS: J1756

== ENCOUNTER → 2018-04-28 | Outpatient (REF) | payer MEDICARE, MEDICAID ==
[~2018-04-28] MED LIST changes: +ASPIRIN EC325 MG PO; +CIPROFLOXACN500 MG PO; +GLYCOLAX3350 N1 PO; +LEVOTHYROXIN50 MCG PO; +TYLENOL325 MG PO; +ZOFRAN4 MG/TAB PO
== END | disposition home or self-care (01) ==
LOC: DI 12:58
PROVIDERS: ATTEND Orthopaedic Surgery
DX: M25.561 Pain in right knee (principal); M25.562 Pain in left knee; Z47.1 Aftercare following joint replacement surgery; Z96.653 Presence of artificial knee joint, bilateral

== ENCOUNTER 2022-02-09 14:27 | Emergency (ER) | payer MEDICARE, MEDICAID ==
[~2022-02-09] VITALS: Ht 177.8 cm; Wt 90.7 kg
[2022-02-09 15:16] VITALS: BP 127/65
[2022-02-09 15:30] VITALS: BP 123/63
[2022-02-09 17:30] VITALS: BP 131/58
[2022-02-09] MEDS ORDERED: DOXY-CAPS100 MG PO (18:01)
[2022-02-09] MEDS ORDERED: METRONIDAZOLE500 MG PO (18:01)
== END 2022-02-09 19:45 | disposition home or self-care (01) ==
LOC: ED 14:27
PROC: 0HQFXZZ Repair Right Hand Skin, External Approach (ICD-10-PCS; principal; 2022-02-09)
DX: S61.451A Open bite of right hand, initial encounter (principal); E78.5 Hyperlipidemia, unspecified; J43.9 Emphysema, unspecified; W54.0XXA Bitten by dog, initial encounter; Y92.009 Unspecified place in unspecified non-institutional (private) residence as the place of occurrence of the external cause; Z88.0 Allergy status to penicillin

== ENCOUNTER 2022-02-13 07:48 | Emergency (ER) | payer MEDICARE, MEDICAID ==
[~2022-02-13] VITALS: Ht 177.8 cm; Wt 90.9 kg
[~2022-02-13 07:48] MED LIST changes: +DOXY-CAPS100 MG PO; +METRONIDAZOLE500 MG PO
[2022-02-13 08:08] VITALS: BP 125/65
[2022-02-13 08:16] VITALS: BP 111/58
[2022-02-13 08:30] VITALS: BP 118/62
[2022-02-13 08:47] VITALS: BP 118/62
== END 2022-02-13 08:50 | disposition home or self-care (01) ==
LOC: ED 07:48
DX: S61.451D Open bite of right hand, subsequent encounter (principal); W54.0XXD Bitten by dog, subsequent encounter; J43.9 Emphysema, unspecified; E78.5 Hyperlipidemia, unspecified

== ENCOUNTER 2022-02-18 08:48 | Emergency (ER) | payer MEDICARE, MEDICAID ==
[~2022-02-18] VITALS: Ht 177.8 cm; Wt 72.7 kg
[2022-02-18] VITALS (9 sets, daily range): BP systolic 107–131; BP diastolic 57–93
[2022-02-18] MEDS ORDERED: DOXY-CAPS100 MG PO (11:15)
[2022-02-18] MEDS ORDERED: METRONIDAZOLE500 MG PO (11:15)
[2022-02-18] MEDS ORDERED: ZOFRAN4 MG/TAB PO (11:15)
== END 2022-02-18 11:25 | disposition home or self-care (01) ==
LOC: ED 08:48
DX: S61.451D Open bite of right hand, subsequent encounter (principal); W54.0XXD Bitten by dog, subsequent encounter; J43.9 Emphysema, unspecified; E78.5 Hyperlipidemia, unspecified

== ENCOUNTER 2022-02-21 14:29 | Emergency (ER) | payer MEDICARE, MEDICAID ==
[~2022-02-21] VITALS: Ht 177.8 cm; Wt 89.5 kg
[2022-02-21 14:47] VITALS: BP 123/58
[2022-02-21 15:08] VITALS: BP 123/58
== END 2022-02-21 15:08 | disposition home or self-care (01) ==
LOC: ED 14:29
DX: S61.451D Open bite of right hand, subsequent encounter (principal); J43.9 Emphysema, unspecified; E78.5 Hyperlipidemia, unspecified; W54.0XXD Bitten by dog, subsequent encounter